=== PATIENT | male | born 1980 | race American Indian/Alaskan Native ===

== ENCOUNTER 2017-02-12 10:13 | Emergency (ER) | payer MEDICAID ==
[2017-02-12 16:19] LABS: Alanine Aminotransferase 31 units/L (7-56); Albumin 4.9 g/dL (3.9-5); Albumin/Globulin Ratio 1.8 %; Alkaline Phosphatase 87 units/L (35-129); Anion Gap 17 mmol/L; BUN/Creatinine Ratio 13.33; Blood Urea Nitrogen 12 mg/dL (9-20); Calcium 9.7 mg/dL (8.4-10.2); Carbon Dioxide 28 mmol/L (22-30); Chloride 96.6 mmol/L (98-107); Glucose 306 mg/dL (75-100); Potassium 4.8 mmol/L (3.6-5.0); Sodium 137 mmol/L (137-145); Total Protein 7.7 g/dL (6.3-8.2)
[2017-02-12] MEDS ORDERED: NACL 0.9% 1000 ML 1,000 ML IV ONE (16:22)
[2017-02-12] MEDS ORDERED: ZOFRAN IV ONE (16:22)
[2017-02-12 16:27] LABS: Basophils % (Auto) 0.2 % (0.0-1.8); Hematocrit 46.1 % (35.5-45.6); Hemoglobin 15.2 gm/dl (11.8-15.2); Mean Corpuscular HGB Conc 33 % (32-34); Mean Corpuscular Hemoglobin 28 pg (28-32); Mean Corpuscular Volume 84 fl (84-94); Platelet Count 189 K/mm3 (140-440); Red Blood Count 5.48 M/mm3 (3.65-5.03); Red Cell Distribution Width 13.6 % (13.2-15.2); White Blood Count 9.8 K/mm3 (4.5-11.0)
--- NOTE | 2017-02-12 16:30 | Emergency Department Report ---
ED Dizziness HPI - General Chief Complaint: Dizziness Stated Complaint: VOMITING BLOOD/DIZZINESS Time Seen by Provider: 02/12/17 16:10 Source: patient Mode of arrival: Ambulatory Limitations: No Limitations - History of Present Illness MD Complaint: dizziness, lightheadedness, near syncope -: Sudden (while he [facility]) Timing: sudden onset Description: sense of movement, lightheadedness History of Same: Yes History of Trauma: No Severity: mild Improves With: rehydration Worsens With: nothing Associated Symptoms: weakness. denies: ataxia, chest pain, confusion, cough, diaphoresis, fever/chills, loss of appetite - Related Data Previous Rx's Medication Instructions Recorded Last Taken Type Mineral Oil [Mineral Oil Heavy] 30 ml PO TID #1 oil 11/22/14 Unknown Rx Polyethylene Glycol 3350 [Miralax] 17 gm PO DAILY #10 powder 11/22/14 Unknown Rx Benzonatate [Tessalon Perles] 100 mg PO Q8HR #20 capsule 12/30/15 Unknown Rx Ondansetron [Zofran Odt] 4 mg PO Q8HR PRN #10 tab.rapdis 12/30/15 Unknown Rx Allergies Allergy/AdvReac Type Severity Reaction Status Date / Time erythromycin base Allergy Hives Verified 11/21/14 20:50 ED Review of Systems ROS: Stated complaint: VOMITING BLOOD/DIZZINESS Other details as noted in HPI Comment: All other systems reviewed and negative ED Past Medical Hx - Past Medical History Previous Medical History?: Yes Hx Diabetes: Yes - Surgical History Past Surgical History?: Yes Hx Appendectomy: Yes - Social History Smoking Status: Never Smoker Substance Use Type: None - Medications Home Medications: Home Medications Medication Instructions Recorded Confirmed Last Taken Type Mineral Oil [Mineral Oil Heavy] 30 ml PO TID #1 oil 11/22/14 Unknown Rx Polyethylene Glycol 3350 [Miralax] 17 gm PO DAILY #10 powder 11/22/14 Unknown Rx Benzonatate [Tessalon Perles] 100 mg PO Q8HR #20 capsule 12/30/15 Unknown Rx Ondansetron [Zofran Odt] 4 mg PO Q8HR PRN #10 tab.rapdis 12/30/15 Unknown Rx ED Physical Exam - General Limitations: No Limitations General appearance: alert, in no apparent distress - Head Head exam: Present: atraumatic, normocephalic - Eye Eye exam: Present: normal appearance - ENT ENT exam: Present: mucous membranes moist - Neck Neck exam: Present: normal inspection - Respiratory Respiratory exam: Present: normal lung sounds bilaterally. Absent: respiratory distress - Cardiovascular Cardiovascular Exam: Present: regular rate, normal rhythm. Absent: systolic murmur, diastolic murmur, rubs, gallop - GI/Abdominal GI/Abdominal exam: Present: soft, normal bowel sounds - Rectal Rectal exam: Present: deferred - Extremities Exam Extremities exam: Present: normal inspection - Back Exam Back exam: Present: normal inspection - Neurological Exam Neurological exam: Present: alert, oriented X3 - Psychiatric Psychiatric exam: Present: normal affect, normal mood - Skin Skin exam: Present: warm, dry, intact, normal color. Absent: rash ED Course Vital Signs 02/12/17 10:46 Temperature 97.8 F Pulse Rate 86 Respiratory 16 Rate Blood Pressure 131/92 O2 Sat by Pulse 100 Oximetry ED Medical Decision Making - Lab Data Result diagrams: 02/12/17 15:46 02/12/17 15:46 - EKG Data -: EKG Interpreted by Or EKG shows normal: sinus rhythm Rate: normal - EKG Data When compared to previous EKG there are: no significant change - Medical Decision Making patient doing well, getting fluids and labs with hyperglycemia but otherwise negative. he feels better , wishes to go home , no evidence of DKA at this time. will dc with close follow up. Critical care attestation.: If time is entered above; I have spent that time in minutes in the direct care of this critically ill patient, excluding procedure time. ED Disposition Clinical Impression: Dizziness, Hyperglycemia due to type 1 diabetes mellitus Disposition: DC-01 TO HOME OR SELFCARE Is pt being admited?: No Does the pt Need Aspirin: No Condition: Good Instructions: Diabetes Mellitus Type 2 in Adults (ED) Referrals: PRIMARY CARE, [Primary Care Provider] - 3-5 Days Time of Disposition: 17:20
[2017-02-12 17:23] LABS: Bilirubin,Urine NEG (Negative); Blood,Urine NEG (Negative); Ketones,Urine 20 mg/dL (Negative); Leukocyte Esterase,Urine NEG (Negative); Mucus,Urine FEW /HPF; Nitrite,Urine NEG (Negative); Protein,Urine <15 mg/dL mg/dL (Negative); Urobilinogen,Urine < 2.0 mg/dL (<2.0)
[2017-02-12 17:59] VITALS: BP 110/72
== END 2017-02-12 17:57 | disposition home or self-care (01) ==
LOC: ED 10:13
DX: E10.65 Type 1 diabetes mellitus with hyperglycemia (principal); R42 Dizziness and giddiness; Z91.048 Other nonmedicinal substance allergy status
CPT/HCPCS: 36415; 80053; 81001; 82962; 85025; 93005; 93010; 96361; 96374; 99283; J2405; J7030

== ENCOUNTER 2019-04-27 16:43 | Emergency (ER) | payer MEDICAID ==
--- NOTE | 2019-04-27 17:26 | Event Note ---
ED Screening Note Date of service: 04/27/19 Time: 17:03 ED Screening Note: 39 y o male presents with abscess to back of his scalp This initial assessment/diagnostic orders/clinical plan/treatment(s) is/are subject to change based on patients health status, clinical progression and re-assessment by fellow clinical providers in the ED. Further treatment and workup at subsequent clinical providers discretion. Patient/guardian urged not to elope from the ED as their condition may be serious if not clinically assessed and managed. Initial orders include: I&D benadryl
[2019-04-27] MEDS ORDERED: ROCEPHIN IM STA (21:12)
[2019-04-27] MEDS ORDERED: XYLOCAINE 1% MPF 5 mL INFILTRATI ONE (21:13)
--- NOTE | 2019-04-27 21:25 | Emergency Department Report ---
- General Chief complaint: Skin/Abscess/Foreign Body Stated complaint: KNOT ON NECK/PAIN Time Seen by Provider: 04/27/19 17:03 Source: patient Mode of arrival: Ambulatory Limitations: No Limitations - History of Present Illness Initial comments: 29-year-old noncompliant diabetic. His deformity complaining of a few day history of pain to the back of his neck/scalp region, associated with swelling and discomfort which has been progressively worsening. He reports having some pustules. There feels he is developing an abscess in and presents most department for incision and drainage. States she was planning on taking the razor blade to the area diabetic, no odynophagia or dysphagia Worsens with: none Context: none Associated symptoms: denies other symptoms Treatments Prior to Arrival: none - Related Data Previous Rx's Medication Instructions Recorded Last Taken Type Mineral Oil [Mineral Oil Heavy] 30 ml PO TID #1 oil 11/22/14 Unknown Rx Polyethylene Glycol 3350 [Miralax] 17 gm PO DAILY #10 powder 11/22/14 Unknown Rx Benzonatate [Tessalon Perles] 100 mg PO Q8HR #20 capsule 12/30/15 Unknown Rx Ondansetron [Zofran Odt] 4 mg PO Q8HR PRN #10 tab.rapdis 12/30/15 Unknown Rx Chlorhexidine Gluconate [Hibiclens] 10 ml TP BID #240 liquid 04/27/19 Unknown Rx Ketorolac [Toradol] 10 mg PO Q6H PRN #15 tablet 04/27/19 Unknown Rx Sulfamethoxazole/Trimethoprim 1 each PO BID #20 tablet 04/27/19 Unknown Rx [Bactrim Ds] cephALEXin [Keflex] 500 mg PO Q6HR #40 capsule 04/27/19 Unknown Rx Allergies Allergy/AdvReac Type Severity Reaction Status Date / Time erythromycin base Allergy Hives Verified 11/21/14 20:50 Abscess Boil HPI - HPI Chief Complaint: Skin/Abscess/Foreign Body Stated Complaint: KNOT ON NECK/PAIN Time Seen by Provider: 04/27/19 17:03 Home Medications: Previous Rx's Medication Instructions Recorded Last Taken Type Mineral Oil [Mineral Oil Heavy] 30 ml PO TID #1 oil 11/22/14 Unknown Rx Polyethylene Glycol 3350 [Miralax] 17 gm PO DAILY #10 powder 11/22/14 Unknown Rx Benzonatate [Tessalon Perles] 100 mg PO Q8HR #20 capsule 12/30/15 Unknown Rx Ondansetron [Zofran Odt] 4 mg PO Q8HR PRN #10 tab.rapdis 12/30/15 Unknown Rx Chlorhexidine Gluconate [Hibiclens] 10 ml TP BID #240 liquid 04/27/19 Unknown Rx Ketorolac [Toradol] 10 mg PO Q6H PRN #15 tablet 04/27/19 Unknown Rx Sulfamethoxazole/Trimethoprim 1 each PO BID #20 tablet 04/27/19 Unknown Rx [Bactrim Ds] cephALEXin [Keflex] 500 mg PO Q6HR #40 capsule 04/27/19 Unknown Rx Allergies/Adverse Reactions: Allergies Allergy/AdvReac Type Severity Reaction Status Date / Time erythromycin base Allergy Hives Verified 11/21/14 20:50 ED Review of Systems ROS: Stated complaint: KNOT ON NECK/PAIN Other details as noted in HPI Comment: All other systems reviewed and negative ED Past Medical Hx - Past Medical History Previous Medical History?: Yes Hx Diabetes: Yes - Surgical History Past Surgical History?: Yes Hx Appendectomy: Yes - Social History Smoking Status: Never Smoker Substance Use Type: Prescribed - Medications Home Medications: Home Medications Medication Instructions Recorded Confirmed Last Taken Type Mineral Oil [Mineral Oil Heavy] 30 ml PO TID #1 oil 11/22/14 Unknown Rx Polyethylene Glycol 3350 [Miralax] 17 gm PO DAILY #10 powder 11/22/14 Unknown Rx Benzonatate [Tessalon Perles] 100 mg PO Q8HR #20 capsule 12/30/15 Unknown Rx Ondansetron [Zofran Odt] 4 mg PO Q8HR PRN #10 tab.rapdis 12/30/15 Unknown Rx Chlorhexidine Gluconate [Hibiclens] 10 ml TP BID #240 liquid 04/27/19 Unknown Rx Ketorolac [Toradol] 10 mg PO Q6H PRN #15 tablet 04/27/19 Unknown Rx Sulfamethoxazole/Trimethoprim 1 each PO BID #20 tablet 04/27/19 Unknown Rx [Bactrim Ds] cephALEXin [Keflex] 500 mg PO Q6HR #40 capsule 04/27/19 Unknown Rx ED Physical Exam - General Limitations: No Limitations General appearance: alert, in no apparent distress - Head Head exam: Present: atraumatic, normocephalic - Eye Eye exam: Present: normal appearance - ENT ENT exam: Present: normal exam, normal orophraynx, mucous membranes moist - Neck Neck exam: Present: normal inspection - Respiratory Respiratory exam: Present: normal lung sounds bilaterally. Absent: respiratory distress - Cardiovascular Cardiovascular Exam: Present: regular rate, normal rhythm. Absent: systolic murmur, diastolic murmur, rubs, gallop - GI/Abdominal GI/Abdominal exam: Present: soft, normal bowel sounds - Rectal Rectal exam: Present: deferred - Extremities Exam Extremities exam: Present: normal inspection - Back Exam Back exam: Present: normal inspection - Neurological Exam Neurological exam: Present: alert, oriented X3 - Psychiatric Psychiatric exam: Present: normal affect, normal mood - Skin Skin exam: Present: warm, dry, other (erythema with some swelling, mild induration of pustules, one every right axis to the posterior neck). Absent: rash ED Course Vital Signs 04/27/19 17:00 Temperature 99.1 F Pulse Rate 102 H Respiratory 20 Rate Blood Pressure 150/89 O2 Sat by Pulse 96 Oximetry ED Medical Decision Making - Medical Decision Making 39-year-old obese -[place] male with a skin infection to her neck with. FOLLICULITIS which is progressing to a cellulitis/possible early abscess to skin is soft, tender, warm, minimal induration, no fluctuance or abscess is appreciated at this time. Wound was evaluated by myself and also my colleague Miriam Nguyen this present time. No drainable abscess is present. Advised patient it is unwise to incise this unknown area with a definite fluid accumulation Critical care attestation.: If time is entered above; I have spent that time in minutes in the direct care of this critically ill patient, excluding procedure time. ED Disposition Clinical Impression: Folliculitis, Cellulitis Disposition: DC-01 TO HOME OR SELFCARE Is pt being admited?: No Does the pt Need Aspirin: No Condition: Stable Instructions: Cellulitis (ED), Folliculitis (ED) Additional Instructions: Please follow up for reevaluation in 48 hours Prescriptions: Sulfamethoxazole/Trimethoprim [Bactrim Ds] 1 each PO BID #20 tablet Chlorhexidine Gluconate [Hibiclens] 10 ml TP BID #240 liquid cephALEXin [Keflex] 500 mg PO Q6HR #40 capsule Ketorolac [Toradol] 10 mg PO Q6H PRN #15 tablet PRN Reason: Pain Referrals: [facility] [Provider Group] - 3-5 Days
[2019-04-27] MEDS ORDERED: IBUPROFEN PO ONE (22:21)
[2019-04-27 22:31] VITALS: BP 152/90
== END 2019-04-27 22:31 | disposition home or self-care (01) ==
LOC: ED 16:43
DX: L03.221 Cellulitis of neck (principal); L73.9 Follicular disorder, unspecified
CPT/HCPCS: 96372; 99282; J0696